=== PATIENT | female | born 1970 | race Caucasian/White ===

== ENCOUNTER 2018-06-29 07:49 | Outpatient (CLI) | payer MEDICAID, SELFPAY ==
--- NOTE | 2018-06-29 06:00 | DI.RAD_ITS ---
SYMPTOMS/DIAGNOSIS: LUMBAR SPONDYLOSIS C-ARM FLUOROSCOPY, PAIN CLINIC LUMBAR SPINE: Fluoroscopy Time: 75.5 seconds/18.88 mGy C-arm fluoroscopy was utilized by Dr. Suaerz during reported lumbar radiofrequency ablation. Hard copies show needle placement projected adjacent to the pedicles at what appear to be the L2, L3 and L4 levels on the right and the L4 level on the left.
[2018-06-29 07:53] VITALS: BP 97/72; PULSE 90; RESP 16; TEMP 37.4; O2SAT 99
[2018-06-29 09:12] LABS: HCG Qual (Urine) Negative
[2018-06-29] MEDS: Midazolam 2 MG/2 ML VIAL IVP (09:15)
[2018-06-29] MEDS: fentaNYL 100 MCG/2 ML VIAL IVP (09:15)
[2018-06-29] MEDS: Lactated Ringers 1,000 ML 80 ML IV (09:22)
[2018-06-29 09:42] VITALS: BP 101/38; PULSE 77; RESP 14; O2SAT 100
[2018-06-29] MEDS: Lidocaine 1% Pres-Free 5 ML VIAL IJ (10:01)
--- NOTE | 2018-06-29 10:02 | PDOC.PAIN_ITS ---
Pain Clinic Procedure Note Current Active Problems Problem Status Onset Lumbosacral spondylosis without myelopathy Chronic COOLED LUMBAR/SACRAL MEDIAL BRANCH RADIOFREQUENCY AVINASH HARDEN has been referred to the [facility] for radiofrequency treatment of chronic axial back pain. AVINASH has had long standing back pain thought to be facet joint generated and which has been refractory to other therapies. Local anesthetic medial branch blocks or intra- articular facet joint injections resulted in AVINASH reporting reduction of the usual axial component of pain for at least the duration of the local anesthetic effect. COMMENTS: Patient has had several radiofrequency ablations in the past with good relief for over a year Patient was interviewed and the medical record reviewed. There were no medical , pharmacologic, radiographic or other structural contraindications to attempting fluoroscopically guided radiofrequency treatment. Risks and expected side effects as well as potential benefit of the procedure were reviewed and voiced concerns addressed. The printed consent form was signed and witnessed. Standard time-out procedure was performed. Patient was placed in the prone position on the fluoroscopy table and automated blood pressure cuff and pulse oximeter applied. The skin entry points for approaching the anatomic target points of the segmental medial branches of { bilateral: L1, 2, 3 (TP L2, 3, 4} were identified with fluoroscopy and marked. Following thorough Chlorhexadine preparation of the skin and draping and 1% lidocaine infiltration of the skin entry points and subcutaneous tissues, a single 17 guage 10 cm 4mm active tip radiofrequency cannula was placed under fluoroscopic guidance along or across the anatomic course of each respective segmental medial branch. Each placement was stimulated at 50Hz and les then 0.5V for medial branch sensory localization and the at 2Hz and up to 3 times the sensory voltage without any evidence of distal myotomal stimulation. 1cc of 1% ;idocaine was injected at each site. At each placement a continuous mode radiofrequency treatment was done at 60 degrees C for 150secs. This radiofrequency treatment should result in the denervation of the { bilateral L2-3,3-4 FACET JOINTS}.~ A total of {4} facets were expected to be denervated from today's treatment. Vital signs were stable throughout the procedure and were as recorded in the docflowsheet by the nursing staff. If given, dosages of intravenous drugs for anxiolysis and analgesia were documented in the Medication Administration Record (MAR). Follow up plans and appointments were discussed. Post procedure instruction was given as documented in the nursing documentation and having met discharge criteria, AVINASH was discharged from the [facility]. COMMENTS: Versed 1 mg and fentanyl 50 mcg given. Patient will follow-up as needed. I suggested that if she is still having leg weakness that EMG should be done or possibly an MRI. It is possible that her system is now being MRI compatible. We also briefly talked about replacing her IPG as noted slight. She will come in for an office visit to discuss. CC: Naveen Taylor
== END 2018-06-29 08:09 ==
PROVIDERS: PCP Family Medicine; Visit Provider Anesthesiology Pain Medicine
DX: M47.817 Spondylosis without myelopathy or radiculopathy, lumbosacral region (principal); G89.29 Other chronic pain
CPT/HCPCS: 64635 ×2; 64636 ×2; 72100; 81025; 84702; J2250; J3010

== ENCOUNTER 2019-04-18 12:53 | Outpatient (CLI) | payer MEDICAID, SELFPAY ==
--- NOTE | 2019-04-18 11:26 | DI.RAD_ITS ---
SYMPTOM/DIAGNOSIS: T SHOULDER INJURY RIGHT SHOULDER: The glenohumeral joint space is well maintained. There is no significant periarticular spurring. The AC joint is not widened. There is minimal spurring at the AC joint. No tendon or joint space calcifications are seen. IMPRESSION: Minimal degenerative changes.
== END 2019-04-18 13:13 ==
PROVIDERS: PCP Family Medicine; Visit Provider Physician Assistant
DX: M25.511 Pain in right shoulder (principal); M19.011 Primary osteoarthritis, right shoulder
CPT/HCPCS: 73030

== ENCOUNTER 2019-05-09 01:17 | Outpatient (CLI) | payer MEDICAID, SELFPAY ==
--- NOTE | 2019-05-09 07:24 | DI.RAD_ITS ---
EXAM: RF JOINT INJECTION FLUORO GUID INDICATION: right rotator cuff tendonitis/tear;CT arthrogram. COMPARISON: No exams were available for comparison TECHNIQUE: 2D digital imaging was performed. FINDINGS: Fluoroscopic guided right shoulder joint injection was performed prior to CT arthrogram. Fluoroscopi c images show successful placement of contrast within the right shoulder joint. There is contrast no dipak adjacent to the humeral head. This is suspicious for a rotator cuff tear. IMPRESSION: Successful right shoulder arthrogram.
--- NOTE | 2019-05-09 13:40 | DI.CT_ITS ---
EXAM: CT UPPER EXTREMITY RT WO CLINICAL HISTORY: right rotator cuff tendonitis/tear. TECHNIQUE: Imaging Protocol: Axial computed tomography images with coronal and sagittal reformatted images were created and reviewed. CONTRAST MATERIAL: Oral: No. Intra-articular contrast was placed into the right shoulder joint. COMPARISON: No exams were available for comparison FINDINGS: The glenoid labrum appears grossly unremarkable. The biceps tendon appears grossly unremarkable. Th ere is a full-thickness tear of the anterior aspect of the supraspinatus tendon at its insertion onto the greater tuberosity. There is fluid seen in the subacromial bursa. The bones are intact. There is no evidence of an acute fracture or dislocation. The bones appear no rmally mineralized. The soft tissues are unremarkable. IMPRESSION: Findings consistent with a full-thickness tear of the supraspinatus tendon. DATA REPOSITORY: All CT scans at this facility are submitted to the National Radiology Data Registry (NRDR) Dose Index Registry (DIR) with the [employer] ([employer]). RADIATION OPTIMIZATION: All CT scans at this facility use at least one of these dose optimization te chniques: automated exposure control; mA and/or kV adjustment per patient size (includes targeted exa ms where dose is matched to clinical indication); or iterative reconstruction.
[2019-05-09] MEDS: Bupivacaine 0.5% Pres-Free 10 ML VIAL 5 ML IJ (15:24)
[2019-05-09] MEDS: Omnipaque 300 MG/ML 10 ML BTL IJ (15:25)
== END 2019-05-09 01:37 ==
PROVIDERS: PCP Family Medicine; Visit Provider Orthopaedic Surgery
DX: M75.81 Other shoulder lesions, right shoulder (principal); M75.101 Unspecified rotator cuff tear or rupture of right shoulder, not specified as traumatic
CPT/HCPCS: 77002; 73200

== ENCOUNTER 2019-09-14 05:58 | Day surgery (SDC) | payer MEDICAID, SELFPAY ==
[2019-09-14] VITALS (8 sets, daily range): BP systolic 97–107; BP diastolic 47–67; PULSE 64–102; RESP 12–17; TEMP 35.7–36.4; O2SAT 97–100
[2019-09-14] MEDS: Lactated Ringers 1,000 ML 100 ML IV (06:56)
[2019-09-14] MEDS: ceFAZolin 2 GM/50 ML BAG IVPB (07:32)
[2019-09-14] MEDS: EPINEPHrine 30 MG/30 ML VIAL (07:32)
--- NOTE | 2019-09-14 10:07 | PDOC.DSDIS_ITS ---
Discharge Plan Disposition Patient Disposition: HOME Condition: Stable Discharge Details Reason For Visit: Right shoulder surgery Attending Provider: Otoniel Leon Primary Care Provider: Naveen Taylor Home Meds and New Rx's Prescriptions: New aspirin 81 mg tablet,delayed release (DR/EC) 81 mg PO DAILY 14 Days Qty: 14 RF: 0 oxycodone 5 mg tablet 5 - 10 mg PO Q4H PRN (Reason: moderate to severe pain) Qty: 12 RF: 0 Continued celecoxib 400 mg capsule 400 mg PO DAILY Qty: 30 RF: 3 duloxetine [Cymbalta] 30 mg capsule,delayed release(DR/EC) 30 mg PO DAILY Qty: 90 RF: 4 benzonatate 100 mg capsule 100 mg PO TID PRN (Reason: cough) Qty: 30 RF: 2 amitriptyline 10 mg tablet 40 mg PO HS Qty: 120 RF: 5 lidocaine 5 % ointment 1 applic TP TID Qty: 60 RF: 4 hydrocodone-acetaminophen 5-325 mg tablet 1 tab PO Q6H PRN MDD 4 tab Qty: 90 RF: 0 diazepam [Valium] 5 mg tablet 5 mg PO BID PRN (Reason: anxiety) Qty: 60 RF: 2 pregabalin [Lyrica] 100 mg capsule 100 mg PO BID Qty: 60 RF: 3 Narcan 4 MG spray,non-aerosol 4 mg NS ONCE Qty: 1 RF: 0 montelukast 10 mg tablet 10 mg PO DAILY Qty: 90 RF: 4 sumatriptan succinate 50 mg tablet 50 mg PO ONCE MDD 100 mg PRN (Reason: migraine headache) Qty: 18 RF: 5 fexofenadine 180 mg tablet 180 mg PO DAILY Qty: 90 RF: 3 topiramate 50 mg tablet 50 mg PO BID Qty: 180 RF: 4 multivitamin [One Daily] 1 EACH tablet 1 tab PO DAILY RF: 0 ascorbic acid (vitamin C) [Vitamin C] 500 MG tablet 1 tab PO DAILY PRNRF: 0 vitamin B complex 1 EACH tablet 1 tab PO DAILY RF: 0 Discharge Instructions Additional Instructions: Surgery: Shoulder arthroscopy with debridment, decompression, and biceps tenotomy Activity: You should advance to full range of motion and use of your shoulder over the next few days to weeks. You may use the sling when out of the home for pain control for up to 5 days then do not wear sling anymore. A physical therapy prescription and home stretching hangout will be provided separately today. Prescriptions: Aspirin 81 mg take 1 daily to prevent a blood clot for 2 weeks Oxycodone 5 mg take 1-2 every 4-6 hours as needed for severe pain May resume home baseline Celebrex and narcotics as needed for chronic pain. You may use [id number] Tylenol (acetaminophen) as needed for mild pain. These pain medications may be taken all at once or in different combinations as needed. Also, recommend Colace (docusate) as a stool softener as surgery and pain medicine cause constipation. Dressings: Leave dressing in place for 2-3 days. May then remove and leave open to air or cover incisions with Band-Aids. May shower after 5 days. Follow-up: 10-[address] Leon Please call the office during business hours with any questions or concerns. Let us know right away if you develop any redness, drainage, fevers, chest pain, or trouble breathing. Do not drink alcohol or drive for at least 24 hours after anesthesia. Referrals: Otoniel Leon MD [ [facility] STAFF PHYSICIAN] - Discharge Orders Discharge Orders: Discharge Order (Routine); Ordered 09/14/19 Ordered By: Otoniel Leon DS: Diagnosis Discharge Diagnosis (1) Bursitis of right shoulder: Status: Acute (2) Impingement syndrome of right shoulder: Status: Acute (3) Tendonitis of long head of biceps brachii of right shoulder: Status: Acute (4) SLAP lesion of right shoulder: Status: Acute
--- NOTE | 2019-09-14 10:17 | ROE_ITS ---
Date of service: 09/14/19 Time of Service: 10:10 Operative Note Operative Note DATE OF PROCEDURE: 09/14/19 PRE-OP DIAGNOSIS: Right: 1. Rotator cuff tear 2. LHB tendinopathy 3. Bursitis 4. Impingement POST-OP DIAGNOSIS: other Right: 1. SLAP tear 2. LHB tendinopathy 3. Bursitis 4. Impingement PROCEDURE: Right: 1. Extensive debridement, CPT# 88206. This involved using arthroscopic hand instruments, power instruments, and radiofrequency instruments to debride areas of labral tearing, synovitis, and chondromalacia within the glenohumeral joint anteriorly and posteriorly; as well as perform a long head of the biceps tenotomy. 2. Subacromial decompression with partial acromioplasty, CPT# 25672. This involved using arthroscopic power instruments and a radiofrequency wand to complete a bursectomy and remove bone spurs on the undersurface of the acromion. The certified dental assistant was medically required in order to help assist in techniques above, which require positioning the arm, holding the arthroscope, and manipulating 2 to 4 instrumentsat the same time. This cannot be done without the help of an experienced certified dental assistant. SURGEON: Otoniel Leon DASHBOARD DEVELOPER: Yaya Polanco ANESTHESIA: GETA and regional PATHOLOGY: none sent COMPLICATIONS: None Patient was transported to: PACU Patient's condition: stable Implants: None Indications: The patient was diagnosed with the above conditions and appropriately indicated for surgical intervention. Please see complete medical record for details. Findings: Exam under anesthesia: Full symmetric range of motion no instability Glenohumeral joint: Moderate synovitis anteriorly superiorly and posteriorly. Type I SLAP tear. Long head of the biceps injection inflammation. Intact articular sided rotator cuff. Intact cartilaginous surfaces except for grade 1- 2 chondromalacia adjacent to the biceps. Subacromial space: Moderate bursitis. Moderate subacromial bone spur. Intact bursal sided rotator cuff. Procedure Description: The patient was taken to the operating room and transferred to the operating room table. General anesthesia was induced. While under anesthesia, bilateral shoulders were examined. The patient was positioned in the beachchair position. All bony prominences were well-padded. Preoperative antibiotics were administered. The shoulder was prepped and draped in the usual sterile fashion. The correct patient, procedure, and side of the procedure were all verified prior to incision. Starting through the posterior portal a standard complete diagnostic arthroscopy was performed of the glenohumeral joint including inspection of the long head of the biceps, anterior and superior labrum, subscapularis tendon, supraspinatus and infraspinatus tendons, and axillary recess. The glenoid and humeral head cartilage as well as the posterior labrum were inspected from an anterior viewing portal. Significant findings noted above. The biceps tendon was tenotomized from the labrum using arthroscopic scissors through the anterior p ortal. Starting through the posterior portal, the arthroscope was directed into the subacromial space. A lateral 50 yard line lateral portal was created. A combination of power instruments and a radiofrequency ablator were used to debride bursitis anteriorly, posteriorly, and laterally as well as expose and smooth bone spurring on the undersurface of the acromion. The coracoacromial ligament was partially released. The bursectomy was completed viewing laterally and working from posteriorly and the rotator cuff was thoroughly inspected with findings noted above. The shoulder was drained of arthroscopic fluid. All portal sites were copiously irrigated. These incisions were closed using 3-0 Monocryl in a buried fashion, covered with Mastisol, Steri-Strips, Xeroform, dry gauze, and ABDs. The dressings were covered and secured with Medipore tape. The operative extremity was placed into a sling for immobilization. The patient awoke from anesthesia without complication and was transferred to the recovery room in a stable condition.
== END 2019-09-14 11:47 | disposition home or self-care (01) ==
PROVIDERS: PCP Family Medicine; Visit Provider Student in an Organized Health Care Education/Training Program
PROC: (CPT 29827; principal; 2019-09-14 07:30)
DX: S46.011A Strain of muscle(s) and tendon(s) of the rotator cuff of right shoulder, initial encounter (principal); S43.431A Superior glenoid labrum lesion of right shoulder, initial encounter; M75.41 Impingement syndrome of right shoulder; M75.51 Bursitis of right shoulder; M75.21 Bicipital tendinitis, right shoulder; G89.29 Other chronic pain; W19.XXXA Unspecified fall, initial encounter; Z96.82 Presence of neurostimulator; M65.811 Other synovitis and tenosynovitis, right shoulder; M94.211 Chondromalacia, right shoulder
CPT/HCPCS: 29823; 29826; 76942; 81025; J0690; J1100; J2001; J2250; J2370; J2405; J2704; J3010

== ENCOUNTER 2020-02-07 11:02 | Outpatient (CLI) | payer MEDICAID, SELFPAY ==
--- NOTE | 2020-02-07 08:45 | DI.RAD_ITS ---
EXAM: XR KNEE LT 3V AP,LAT,ALFRED CLINICAL HISTORY: left knee pain TECHNIQUE: COMPARISON: CR LEFT KNEE LIMITED 1 OR 2 VIEWS from 12/21/2011 FINDINGS: Three views were obtained. No bony or soft tissue abnormality seen. Alignment appears within normal limits. IMPRESSION:
== END 2020-02-07 11:22 ==
PROVIDERS: PCP Family Medicine; Referring Provider Family Medicine; Visit Provider Student in an Organized Health Care Education/Training Program
DX: M25.562 Pain in left knee (principal)
CPT/HCPCS: 73562

== ENCOUNTER 2020-12-23 14:26 | Outpatient (REF) | payer MEDICAID, SELFPAY ==
--- NOTE | 2020-12-23 09:00 | PAPFT_PTH ---
PATIENT: Estrella Kaur LOC: [facility] U#:[id number] AGE/SX: 50/F ROOM: RE12/23/[address]: Giuliana Alcantara APRN : 1970 BED: DIS: 12/23/2020 SPEC #: [id number] RECD: 12/24/20 12:46 STATUS: TYSON REAyanna #: [id number] LANDY: 12/23/20 09:[address]: Giuliana Alcantara DEPT: [facility] Cytology RECD BY: Carol Calles ENTERED: 12/24/20 12:46 SP TYPE: PAPFT OTHR DR: Endy Smith MD Tissues: 1 - CX/ENDOCX FOR PAP SMEARS Procedures: PAP THIN PREP/UVM Screening HPV DNA PROBE Comments: [id number]
== END 2020-12-23 14:27 | disposition home or self-care (01) ==
LOC: LBN 14:26
PROVIDERS: PCP Family Medicine
DX: Z12.4 Encounter for screening for malignant neoplasm of cervix (principal); Z11.51 Encounter for screening for human papillomavirus (HPV)
CPT/HCPCS: 88142; 87624

== ENCOUNTER 2021-03-20 02:09 | Outpatient (CLI) | payer MEDICAID, SELFPAY ==
--- NOTE | 2021-03-20 07:23 | DI.MAMMO_ITS ---
Exam(s) MAMMO SCREENING EXAM: MAMMO SCREENING CLINICAL HISTORY: screening,Z12.39. TECHNIQUE: Bilateral full field digital CC and MLO mammographic images were obtained with 3D tomosyn thesis and utilizing computer aided detection (CAD). COMPARISON: None. This is a baseline mammogram on this 51-year-old patient. FINDINGS: No significant radiograph findings in the right breast. In the left breast there are 2 findings. Posteriorly there is an oval noncalcified nodule up again s uggest wall which is probably a benign intramammary lymph node measuring 7 x 5 millimeters. More ant eriorly there is a 4 x 3 millimeter nodule located 8 cm in from the nipple seen on 3D MLO imaging.. Spot compression view ultrasound recommended No malignant-appearing microcalcification groups in this region or elsewhere in either breast There is no significant architectural distortion nor skin thickening-retraction. IMPRESSION: No radiographic evidence of malignancy in right breast. 4 millimeter nodule in the left breast 8 cm in from the nipple another nodule more posteriorly. Ultr asound recommended to determine if these are solid or cystic. BI-RADS Category 0 - Assessment Incomplete: Need additional imaging evaluation Breast Density - Category B - Scattered areas of fibroglandular density Breast density Category C or D implies that the patient has dense breast tissue. Dense breast tissue can make it harder to find cancer on a mammogram. Dense breast tissue is also associated with an incr eased risk of breast cancer. This information about the result of the mammogram report was provided to the patient to raise their awareness. Use this report when you speak with the patient about their risks for breast cancer, which includes their family history. At that time, you may recommend additional screening tests (Ultrasoun d or MRI) as these tests may add significant information. A negative radiographic report should not delay biopsy if a dominant or clinically suspicious mass is present. Up to ten percent of cancers are not identified on mammography. A negative report may reinforce clinical impression. Adenosis and dense breasts may obscure an underlying neoplasm. False positive reports average 6 to 10%. Patient will receive a letter notifying them of these results.
== END 2021-03-20 02:29 ==
DX: Z12.31 Encounter for screening mammogram for malignant neoplasm of breast (principal); R92.8 Other abnormal and inconclusive findings on diagnostic imaging of breast
CPT/HCPCS: 77063; 77067

== ENCOUNTER 2021-04-22 04:43 | Outpatient (CLI) | payer MEDICAID, SELFPAY ==
[2021-04-22 10:53] LABS: ALT 27 U/L (14-59); AST 15 U/L (15-37); Albumin 3.6 g/dL (3.4-5.0); Alkaline Phosphatase 95 U/L (46-116); BUN 14 mg/dL (7-18); Bilirubin, Total 0.2 mg/dL (0.2-1.0); CREATININE 0.9 mg/dL (0.55-1.02); Calcium 8.7 mg/dL (8.5-10.1); Calculated LDL 216 mg/dL (<100); Chloride 103 mmol/L (98-107); Cholesterol 291 mg/dL (<200); Glucose 83 mg/dL (74-106); HDL Cholesterol 43 mg/dL (40-60); Potassium 3.5 mmol/L (3.5-5.1); Sodium 140 mmol/L (136-145); Total Protein 6.9 g/dL (6.4-8.2); Triglyceride 163 mg/dL (<150)
== END 2021-04-22 04:44 | disposition home or self-care (01) ==
LOC: LBO 04:43
DX: Z13.220 Encounter for screening for lipoid disorders (principal); Z00.00 Encounter for general adult medical examination without abnormal findings
CPT/HCPCS: 36415; 80053; 80061

== ENCOUNTER 2021-04-23 02:42 | Outpatient (CLI) | payer MEDICAID, SELFPAY ==
--- NOTE | 2021-04-23 08:00 | DI.US_ITS ---
Exam(s) US BREAST LT COMPLETE EXAM: US BREAST LT COMPLETE CLINICAL HISTORY: F/U MAMMO 03/20/21,LT BREAST NODULES,. TECHNIQUE: Complete ultrasound of the left breast was performed including all 4 quadrants, the retro areolar region, and the ipsilateral axilla. COMPARISON: Prior baseline mammogram of 03/20/2021 was reviewed FINDINGS: There is no evidence of solid or significant cystic lesions in all 4 quadrants of the left breast nor in the retroareolar region. No significant adenopathy in the left axilla. IMPRESSION: Negative complete left breast ultrasound. This implies that the both findings described on the recen t baseline screening mammogram most probably benign lymph nodes. Appropriate follow-up is repeat left breast MAMMOGRAM in 6 months.. Findings are recommendations were discussed by myself with the patient today. BI-RADS Category 3 - 6 month - Probably Benign Finding: Recommend follow-up mammography in 6 months Breast Density - Category B - Scattered areas of fibroglandular density Breast density Category C or D implies that the patient has dense breast tissue. Dense breast tissue can make it harder to find cancer on a mammogram. Dense breast tissue is also associated with an incr eased risk of breast cancer. This information about the result of the mammogram report was provided to the patient to raise their awareness. Use this report when you speak with the patient about their risks for breast cancer, which includes their family history. At that time, you may recommend additional screening tests (Ultrasoun d or MRI) as these tests may add significant information. A negative radiographic report should not delay biopsy if a dominant or clinically suspicious mass is present. Up to ten percent of cancers are not identified on mammography. A negative report may reinforce clinical impression. Adenosis and dense breasts may obscure an underlying neoplasm. False positive reports average 6 to 10%. Patient will receive a letter notifying them of these results.
--- NOTE | 2021-04-23 14:05 | DI.MAMMO_ITS ---
Exam(s) MG MAMMO SCREEN CALL BACK UNI EXAM: MG MAMMO SCREEN CALL BACK UNI CLINICAL HISTORY: F/U MAMMO,LT BREAST NODULES. TECHNIQUE: Unilateral spot mammographic images were obtained with 3D tomosynthesis and utilizing com puter aided detection (CAD). . Complete left breast Ultrasound was also performed, including all 4 quadrants, the retroareolar regio n, and the ipsilateral axilla. COMPARISON: Prior recent baseline mammogram was reviewed. FINDINGS: Additional spot views do not dissipate these nodules. We therefore proceeded with left breast ultras ound which did not reveal focal ultrasound findings (see separate ultrasound report). Therefore thes e findings are most probably both benign intramammary lymph nodes. IMPRESSION: Findings in left breast described are both probably benign intramammary lymph nodes, given their abse nce of visualization on complete left breast ultrasound. Appropriate follow-up , as discussed by myself with the patient today, is repeat left breast MAMMOGRA M in 6 months. The patient was informed of these findings and recommendations prior to leaving the department today. BI-RADS Category 3 - 6 month - Probably Benign Finding: Recommend follow-up mammography in 6 months Breast Density - Category B - Scattered areas of fibroglandular density Breast density Category C or D implies that the patient has dense breast tissue. Dense breast tissue can make it harder to find cancer on a mammogram. Dense breast tissue is also associated with an incr eased risk of breast cancer. This information about the result of the mammogram report was provided to the patient to raise their awareness. Use this report when you speak with the patient about their risks for breast cancer, which includes their family history. At that time, you may recommend additional screening tests (Ultrasoun d or MRI) as these tests may add significant information. A negative radiographic report should not delay biopsy if a dominant or clinically suspicious mass is present. Up to ten percent of cancers are not identified on mammography. A negative report may reinforce clinical impression. Adenosis and dense breasts may obscure an underlying neoplasm. False positive reports average 6 to 10%. Patient will receive a letter notifying them of these results.
== END 2021-04-23 03:02 ==
DX: Z12.31 Encounter for screening mammogram for malignant neoplasm of breast (principal); R92.8 Other abnormal and inconclusive findings on diagnostic imaging of breast
CPT/HCPCS: 76642; 77063; 77067

== ENCOUNTER 2021-05-19 20:30 | Outpatient (REF) | payer MEDICAID, SELFPAY ==
[2021-05-21 13:02] LABS: COVID-19 RT-PCR UVMMC Result Negative (Negative)
== END 2021-05-19 20:31 | disposition home or self-care (01) ==
LOC: NCHCN 20:30
PROVIDERS: Visit Provider Family Medicine
DX: Z20.822 Contact with and (suspected) exposure to COVID-19 (principal); R05.9 Cough, unspecified
CPT/HCPCS: U0003

== ENCOUNTER 2021-12-26 18:18 | Outpatient (REF) | payer MEDICAID, SELFPAY ==
[2021-12-27 12:41] LABS: COVID-19 RT-PCR UVMMC Result Negative (Negative)
== END 2021-12-26 18:19 | disposition home or self-care (01) ==
LOC: LBN 18:18
PROVIDERS: PCP Nurse Practitioner Family; Visit Provider Nurse Practitioner Family
DX: Z20.822 Contact with and (suspected) exposure to COVID-19 (principal); R09.81 Nasal congestion
CPT/HCPCS: U0003

== ENCOUNTER → 2023-07-05 03:18 | Outpatient (CLI) | payer MEDICAID, SELFPAY ==
--- NOTE | 2023-07-05 13:49 | DI.MAMMO_ITS ---
Exam(s) MAMMO SCREENING EXAM: MAMMO SCREENING CLINICAL HISTORY: screening, Z12.39 TECHNIQUE: Mammograms were interpreted according to the usual protocol including computer analysis w [employer] CAD system, tomosynthesis and C-view imaging. COMPARISON: [facility] MAMMO SCREENING from 03/20/2021 MG MG MAMMO SCREEN CALL BACK UNI from 04/23/2021 FINDINGS: The breasts are composed of scattered fibroglandular densities, Breast Density category B. No suspicious masses or suspicious microcalcifications are seen. No skin thickening or abnormal axillary lymph nodes are seen. There has been no significant change from prior exams. IMPRESSION: BI-RADS Category 1, Negative mammogram Yearly screening mammography is recommended. Breast Density - Category B, scattered fibroglandular densities. A negative radiographic report should not delay biopsy if a dominant or clinically suspicious mass is present. Up to ten percent of cancers are not identified on mammography. A negative report may reinforce clinical impression. Adenosis and dense breasts may obscure an underlying neoplasm. False positive reports average 6 to 10%. Patient will receive a letter notifying them of these results.
== END ==
PROVIDERS: PCP Nurse Practitioner Family; Visit Provider Nurse Practitioner Family
DX: Z12.31 Encounter for screening mammogram for malignant neoplasm of breast (principal); R92.323 Mammographic fibroglandular density, bilateral breasts
CPT/HCPCS: 77063; 77067

== ENCOUNTER → 2023-07-19 13:27 | Outpatient (CLI) | payer MEDICAID, SELFPAY ==
--- NOTE | 2023-07-19 08:45 | DI.RAD_ITS ---
Exam(s) XR FOREARM LT EXAM: XR FOREARM LT CLINICAL HISTORY: Fall with injury/weakness to hand after fall,W19.xxxa. TECHNIQUE: 2D digital imaging was performed. Two views. COMPARISON: No exams were available for comparison FINDINGS: BONES: No acute fracture is present. No bony destructive lesion is seen. Visualized portion of elbow and wrist joints are unremarkable. SOFT TISSUE: Normal. IMPRESSION: Unremarkable radiographs of the left forearm. DATA REPOSITORY: RADIATION DOSE DELIVERED:
--- NOTE | 2023-07-19 08:45 | DI.RAD_ITS ---
Exam(s) XR ELBOW LT COMPLETE EXAM: XR ELBOW LT COMPLETE CLINICAL HISTORY: Fall with pain to elbow,W19.xxxa. TECHNIQUE: 2D digital imaging was performed. Three views. COMPARISON: No exams were available for comparison FINDINGS: BONES: No acute fracture is present. No bony destructive lesion is seen. JOINTS: The elbow is normally aligned. No joint effusion is seen. No joint space narrowing SOFT TISSUE: Normal. IMPRESSION: Unremarkable radiographs of the left elbow. DATA REPOSITORY: RADIATION DOSE DELIVERED:
== END ==
PROVIDERS: PCP Nurse Practitioner Family; Visit Provider Nurse Practitioner Family
DX: W19.XXXA Unspecified fall, initial encounter (principal); M25.522 Pain in left elbow; M79.642 Pain in left hand
CPT/HCPCS: 73080; 73090

== ENCOUNTER 2024-05-15 15:35 | Outpatient (CLI) | payer MEDICAID, SELFPAY ==
[2024-05-15 14:38] LABS: Abs Immature Grans 0.02 10^3/uL (0.0-0.06); Absolute Basophil Count 0.12 10^3/uL (0.0-0.2); Absolute Eosinophil Count 0.29 10^3/uL (0.0-0.7); Absolute Lymphocyte Count 2.36 10^3/uL (1.2-3.4); Absolute Neutrophil Count 3.75 10^3/uL (1.2-6.7); Basophils % 1.7 %; Eosinophils % 4.1 %; HCT 39.7 % (36.0-46.0); HGB 12.9 g/dL (11.2-15.7); Immature Grans % 0.3 %; Lymphocytes % 33.5 %; MCH 30.2 pg (27.0-33.0); MCHC 32.5 % (32.0-36.0); MCV 93 fL (80-95); MPV 10.1 fL (8.0-11.0); Monocytes % 7.1 %; Neutrophils % 53.3 %; Platelet Count 321 10^3/uL (130-400); RBC 4.27 10^6/uL (3.93-5.22); RDW 13.1 % (11.7-14.6); RDW-SD 44.5 fL; WBC 7.04 10^3/uL (4.4-10.8)
[2024-05-15 15:32] LABS: Iron 86 ug/dL (50-170); Total Iron Binding Capacity 296 ug/dL (250-450)
[2024-05-15 15:46] LABS: Ferritin 58 ng/mL (8-252); TSH (W/Ref FT4) 3.69 uIU/mL (0.36-3.74)
[2024-05-17 10:25] LABS: Transferrin 230 mg/dL (201-352)
== END 2024-05-15 15:36 | disposition home or self-care (01) ==
LOC: LBO 15:35
PROVIDERS: PCP Nurse Practitioner Family; Visit Provider Nurse Practitioner Family
DX: D50.9 Iron deficiency anemia, unspecified (principal); R73.09 Other abnormal glucose
CPT/HCPCS: 36415; 82728; 83036; 83540; 83550; 84443; 84466; 85025

== ENCOUNTER 2025-08-04 15:09 | Emergency (ER) | payer MEDICAID, SELFPAY ==
[2025-08-04] VITALS (26 sets, daily range): BP systolic 102–143; BP diastolic 49–88; PULSE 79–107; RESP 8–25; TEMP 36.5; O2SAT 94–100
[2025-08-04] MEDS: ACETAMINOPHEN 1,000 MG/100 ML BAG 400 MG IVPB (16:03)
[2025-08-04] MEDS: Ketorolac 15 MG/ML VIAL IVP (16:04)
[2025-08-04] MEDS: Normal Saline 50 ML (16:04)
[2025-08-04] MEDS: Droperidol 5 MG/2 ML VIAL IVP (16:04)
[2025-08-04] MEDS: diphenhydrAMINE 50 MG/ML VIAL 12.5 MG IVP (16:05)
[2025-08-04] MEDS: MAGNESIUM SULFATE 2 GM/50 ML BAG IV_INF (16:06)
[2025-08-04 16:22] LABS: COVID-19 PCR Negative (Negative); RSV PCR Negative (Negative)
[2025-08-04] MEDS: Normal Saline 1,000 ML 1000 ML IV (16:26)
--- NOTE | 2025-08-04 16:30 | ED.GENADUL_ITS ---
Discharge Plan Disposition Patient Disposition: Home Discharge Details Clinical Impression: Migraine, Viral syndrome Primary Care Provider: Deyvi Borja ED Provider: Ludwig Shah Home Meds and New Rx's Prescriptions: No Action duloxetine 30 mg capsule,delayed release(DR/EC) 30 mg PO DAILY Qty: 90 3RF topiramate 50 mg tablet 50 mg PO .COMPLEX Qty: 270 3RF Rx Instructions: 1 tab in am and 2 tabs pm; loratadine [Claritin] 10 mg tablet 10 mg PO DAILY Qty: 90 3RF fexofenadine 180 mg tablet 180 mg PO DAILY Qty: 90 3RF atorvastatin 20 mg tablet 20 mg PO QPM Qty: 90 3RF sumatriptan succinate 50 mg tablet 50 mg PO ONCE MDD 100 mg PRN (Reason: migraine headache) Qty: 18 5RF Rx Instructions: Take one at onset of headache. May repeat in 1 hour amitriptyline 10 mg tablet 40 mg PO HS Qty: 120 5RF montelukast 10 mg tablet 10 mg PO DAILY Qty: 90 4RF pregabalin [Lyrica] 100 mg capsule 100 mg PO BID Qty: 180 2RF triamcinolone acetonide 0.5 % cream 1 applic topical BID Qty: 15 3RF omeprazole 20 mg capsule,delayed release(DR/EC) 20 mg PO DAILY Qty: 90 3RF multivitamin [One Daily] 1 EACH tablet 1 tab PO DAILY naproxen 250 mg tablet 250 - 500 mg PO BID PRN (Reason: pain, moderate) Qty: 60 0RF Discharge Instructions Instructions: Headache, Adult ED Additional Instructions: Please follow-up with your primary care provider regarding your visit to the emergency department today. Be sure to discuss results of all test performed here today to include radiology, and laboratory testing as well as results for any pending cultures. Should your symptoms worsen, or if you develop new concerning symptoms, please return immediately emergency department for further evaluation. Stand Alone Forms: Portal Information HPI General Date/Time Provider Initiated Documentation: 08/04/25 15:11 . HPI Narrative: MDM/Narrative: 55-year-old female with a past medical history of chronic pain, migraine, presents for evaluation of headache x 1 day, body aches, fever and chills x 4 days. Vital signs within normal limits, exam shows no evidence of acute meningitis or any other focal neurologic deficits. Will treat with migraine cocktail, and test for COVID given reported history of her recently testing positive. ED course: Patient states that she feels much improved following treatment, COVID flu RSV is negative, given consolation of symptoms, patient likely is still suffering from a viral syndrome, instructed return emergency department for new or worsening symptoms. Disposition: Home HPI: 55-year-old female past med history of migraine, chronic pain, presents for evaluation of headache. She states 4 days ago both her and her developed symptoms consistent with a viral infection consisting of myalgias, fever, chills, diarrhea and vomiting. She notes that 4 days ago she was tested for COVID with an at home kit which was negative, however her 's at home kit was positive for COVID. She states that today she developed a severe migraine which is similar to characteristics of her typical migraine however more intense. She denies any associated neck pain, neck stiffness or any other new or concerning symptoms. ROS: Negative besides as mentioned above Exam: Gen: A&Ox4, appears uncomfortable. HEENT: NCAT, EOMI, not icteric. External ears normal. No rhinorrhea. Moist mucous membranes. Neck: Supple, full range of motion, no observable masses, No meningeal sign. Lungs: No Respiratory distress. CV: RRR, no edema. Abdomen: Soft, nondistended, No rebound tenderness. MSK: No joint swelling, no redness. Skin: No rashes, petechiae, lesions. Normal color per patient. Neuro: Grossly intact. Pupils are equal round react to light. Psych: Appropriate for situation. Labs: Laboratory Tests Range/Units 08/04/25 15:30 COVID-19 Source Nasopharynx SARS-CoV-2 (PCR) (Negative) Negative Influenza Type A (PCR) (Negative) Negative Influenza Type B (PCR) (Negative) Negative RSV (PCR) (Negative) Negative Related Data Home Medications ?Medication ?Instructions ?Recorded ?Confirmed multivitamin (One Daily tablet) 1 tab PO DAILY 4 08/04/25 naproxen 250 mg tablet 250 - 500 mg (1 - 2 x 250 mg ) PO 09/14/19 08/04/25 BID PRN pain, moderate #60 tabs loratadine 10 mg tablet (Claritin) 10 mg PO DAILY #90 tabs 12/10/21 08/04/25 fexofenadine 180 mg tablet 180 mg PO DAILY #90 tab-cap s 01/25/23 08/04/25 atorvastatin 20 mg tablet 20 mg PO QPM #90 tabs 08/04/25 sumatriptan succinate 50 mg tablet 50 mg PO ONCE PRN m igraine 11/22/24 08/04/25 headache #18 tabs amitriptyline 10 mg tablet 40 mg (4 x 10 mg) PO HS #12 0 tabs 02/14/25 08/04/25 montelukast 10 mg tablet 10 mg PO DAILY #90 tabs 05/1008/04/25 duloxetine 30 mg capsule,delayed 30 mg PO DAILY #90 ta bs 04/12/25 08/04/25 release topiramate 50 mg tablet 50 mg PO .COMPLEX #270 tab-c aps 04/12/25 08/04/25 pregabalin 100 mg capsule (Lyrica) 100 mg PO BID #180 tab-caps 05/07/25 08/04/25 triamcinolone acetonide 0.5 % 1 applic topical BID #15 grams 06/01/25 08/04/25 topical cream omeprazole 20 mg capsule,delayed 20 mg PO DAILY #90 ca ps 06/18/25 08/04/25 release Previous Rx's ?Medication ?Instructions ?Recorded naproxen 250 mg tablet 250 - 500 mg (1 - 2 x 250 mg ) PO 09/14/19 BID PRN pain, moderate #60 tabs loratadine 10 mg tablet (Claritin) 10 mg PO DAILY #90 tabs 12/10/21 fexofenadine 180 mg tablet 180 mg PO DAILY #90 tab-cap s 01/25/23 atorvastatin 20 mg tablet 20 mg PO QPM #90 tabs sumatriptan succinate 50 mg tablet 50 mg PO ONCE PRN m igraine 11/22/24 headache #18 tabs amitriptyline 10 mg tablet 40 mg (4 x 10 mg) PO HS #12 0 tabs 02/14/25 montelukast 10 mg tablet 10 mg PO DAILY #90 tabs 070 05/10 duloxetine 30 mg capsule,delayed 30 mg PO DAILY #90 ta bs 04/12/25 release topiramate 50 mg tablet 50 mg PO .COMPLEX #270 tab-c aps 04/12/25 pregabalin 100 mg capsule (Lyrica) 100 mg PO BID #180 tab-caps 05/07/25 triamcinolone acetonide 0.5 % 1 applic topical BID #15 grams 06/01/25 topical cream omeprazole 20 mg capsule,delayed 20 mg PO DAILY #90 ca ps 06/18/25 release Allergies Allergy/AdvReac Type Severity Reaction Status Date / Time ranitidine HCl (From Zantac) AdvReac Severe severe Verified 08/04/25 15:22 migraines gabapentin AdvReac PSYCHOSIS Verified 08/04/25 15:22 General Stated Complaint: Headache CHELY: 4 Course Vital Signs Vital signs: Vital Signs Temperature 36.5 C 08/04/25 15:18 Pulse 98 H 08/04/25 15:18 Respiratory Rate 16 08/04/25 15:18 Blood Pressure 143/88 H 08/04/25 15:18 Pulse Oximetry 98 08/04/25 15:18 Temperature 36.5 C 08/04/25 15:21 Temperature Source Oral 08/04/25 15:21 Pulse 84 08/04/25 16:20 Pulse 84 08/04/25 16:20 Respiratory Rate 15 08/04/25 16:20 Blood Pressure 135/76 08/04/25 16:19 Blood Pressure Mean 98 08/04/25 16:19 Blood Pressure Position Sitting 08/04/25 15:21 Pulse Oximetry 96 08/04/25 16:20 Oxygen Delivery Method Room Air 08/04/25 15:21 Oxygen Flow Rate 0 08/04/25 15:21 Lab/Test Results Lab/Test Results: Laboratory Tests Range/Units 08/04/25 15:30 COVID-19 Source Nasopharynx SARS-CoV-2 (PCR) (Negative) Negative Influenza Type A (PCR) (Negative) Negative Influenza Type B (PCR) (Negative) Negative RSV (PCR) (Negative) Negative PFSH All Active Problems (Updated 08/04/25 @ 18:07 by Ludwig Shah MD) Viral syndrome (Acute) Migraine (Chronic) Lipoma (Acute) Presence of neurostimulator (Acute) GERD (gastroesophageal reflux disease) (Chronic) Right shoulder pain (Acute) Fall with injury (Acute) Rash (Acute) Increased body mass index (BMI) (Acute) Abnormal mammogram of left breast (Acute) Screening cholesterol level (Acute) Annual physical exam (Acute) Derangement of lateral meniscus of left knee due to old injury (Acute) Sprain of anterior cruciate ligament of left knee (Acute) Internal derangement of left knee (Acute) Cubital tunnel syndrome on right (Acute ~11/2019) SLAP lesion of right shoulder (Acute) Allergy to dog dander (Chronic 10/11/15) Chronic pain syndrome (Chronic) Low back pain (Chronic 08/25/11) Migraine without aura and without status migrainosus, not intractable (Chronic 10/03/15) Non-seasonal allergic rhinitis due to pollen (Chronic 02/25/18) History of spinal surgery (Acute) Bursitis of right shoulder (Acute ~12/2018) Impingement syndrome of right shoulder (Acute ~12/2018) Tendonitis of long head of biceps brachii of right shoulder (Acute ~12/2018) Lumbosacral spondylosis without myelopathy (Chronic) Medical History Annual physical exam History of asthma Lumbosacral spondylosis without myelopathy Screening cholesterol level Surgical History H/O arthroscopy of knee Family History Mother , 69 Diabetes Brother No problems noted. Social History Smoking/Tobacco Use Status: Former Tobacco Use Quit Date: 08/16/89 Smoking risk assessment performed?: Yes Alcohol Intake: former Drug use: Never Substance use type: does not use Caregiver/Support person: No Household members: spouse Housing: apartment Communication Needs: None Do you need help understanding health information?: Rarely Pets and animals: Yes Pets and animals: cat(s) Sexually active: Yes Do you think of yourself as: straight/heterosexual Current gender identity: female What is your relationship status?: How often do you talk on the phone with friends or family?: once per week How often do you get together with friends or relatives?: once per week How often do you attend cheondoism or gnosticism services?: 1-3 times per year Do you belong to any clubs or organized social groups?: no Panel score (0-1 are the most socially isolated patients): 1 Patricia/Buddhist: Zoroastrian Seatbelt use: always Drive intox or ride w/intox driver retraining instructor: No Do you feel safe at home: Yes Do you feel safe in your relationship?: Yes Victim of physical abuse: No Victim of emotional abuse: No Victim of sexual abuse: No Would you like helpful sources: No
== END 2025-08-04 18:17 | disposition home or self-care (01) ==
PROVIDERS: Emergency Provider General Practice; PCP Nurse Practitioner Family
DX: G43.909 Migraine, unspecified, not intractable, without status migrainosus (principal); B34.9 Viral infection, unspecified
CPT/HCPCS: 99284 ×2; 96375; 87637; 96365; 96366; J0131; J1200; J1790; J1885; J3475